=== PATIENT | female | born 1935 | race Caucasian/White ===

== ENCOUNTER 2016-08-15 05:10 | Inpatient (IN) | payer OTHER ==
[~2016-08-15] VITALS: Ht 157.5 cm; Wt 113.0 kg
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
--- NOTE | 2016-08-15 05:14 | NUR ---
BIBA BLS TO ER BED 3
--- NOTE | 2016-08-15 05:14 | NUR ---
Patient being evaluated by physician at bedside.
[2016-08-15] MEDS ORDERED: NACL 0.9% 1,000 ML IV ONE (05:19)
[2016-08-15 05:50] VITALS: BP 157/99
[2016-08-15 06:02] LABS: BASOPHILS # (AUTO) 0.1 K/uL (0.00-0.22); BASOPHILS % (AUTO) 1.2 % (0.0-2.0); EOSINOPHILS # (AUTO) 0.2 K/uL (0-0.4); EOSINOPHILS % (AUTO) 1.6 % (0.0-4.0); HEMOGLOBIN 12.2 g/dL (12.0-16.0); LYMPHOCYTES # (AUTO) 2.6 K/uL (2.5-16.5); LYMPHOCYTES % (AUTO) 23.3 % (20.5-51.1); MEAN CORPUSCULAR HEMOGLOBIN 30 pg (27-31); MEAN CORPUSCULAR HGB CONC 33 g/dL (33-37); MEAN CORPUSCULAR VOLUME 90 fL (80-94); MONOCYTES # (AUTO) 0.5 K/uL (0.8-1.0); MONOCYTES % (AUTO) 4.1 % (1.7-9.3); NEUTROPHILS # (AUTO) 7.7 K/uL (1.8-7.7); NEUTROPHILS % (AUTO) 69.8 % (42.2-75.2); PLATELET COUNT (AUTO) 237 K/uL (140-450); RED BLOOD CELL COUNT(AUTO) 4.13 MIL/uL (4.20-5.40); RED CELL DISTRIBUTION WIDTH 12.9 % (11.6-13.7); WHITE BLOOD COUNT (AUTO) 11.1 K/uL (4.8-10.8)
[2016-08-15 06:15] LABS: ANION GAP 13.1 (8-16); CALCIUM 8.7 mg/dL (8.5-10.1); CARBON DIOXIDE 27.1 mmol/L (21-32); CHLORIDE 94 mmol/L (98-107); CREATININE 1.6 mg/dL (0.6-1.3); GLUCOSE 263 mg/dL (74-106); POTASSIUM 4.2 mmol/L (3.5-5.1); SODIUM SERUM 130 mmol/L (136-145); UREA NITROGEN, BLOOD 35 mg/dL (7-18)
[2016-08-15 06:21] LABS: ALANINE AMINOTRANSFERASE 30 U/L (12-78); ALBUMIN 2.7 g/dL (3.4-5.0); ALKALINE PHOSPHATASE 105 U/L (46-116); ASPARTATE AMINOTRANSFERASE 29 U/L (15-37); LIPASE 88 U/L (73-393); TOTAL BILIRUBIN 0.3 mg/dL (0.0-1.0); TOTAL PROTEIN, SERUM 7.6 g/dL (6.4-8.2)
[2016-08-15 06:23] LABS: PROTHROMBIN TIME 9.9 secs (10.8-13.4)
[2016-08-15] MEDS ORDERED: NACL 0.9% 2,500 ML IV ONE (06:30)
[2016-08-15] MEDS ORDERED: LEVOFLOXACIN 750 MG/D5W PREMIX 150 ML IV ONE (06:30)
[2016-08-15 06:31] LABS: LACTIC ACID 3.5 mmol/L (0.4-2.0)
[2016-08-15 06:38] LABS: APPEARANCE,URINE CLEAR (CLEAR); BILIRUBIN,URINE NEGATIVE (NEGATIVE); BLOOD, URINE NEGATIVE (NEGATIVE); COLOR,URINE YELLOW (YELLOW); LEUKOCYTE ESTERASE ,URINE NEGATIVE (NEGATIVE); NITRITE, URINE NEGATIVE (NEGATIVE); PH,URINE 5.5 (5.0-9.0); PROTEIN,URINE 2+ (NEGATIVE); UGLUCOSE 2+ (NEGATIVE); UROBILINOGEN,URINE 0.2 EU/dL (0.2 - 1)
[2016-08-15 06:45] LABS: BACTERIA,URINE 1+ /HPF (None Seen); RBC,URINE 0-1 /HPF (0-5); WBC,URINE 0-3 /HPF (0-5)
[2016-08-15 06:46] LABS: MUCUS,URINE 1+ /LPF (None Seen); URINE AMORPHOUS URATE 1+ /HPF (None Seen)
--- NOTE | 2016-08-15 07:00 | NUR ---
PT TAKEN OFF THE UNIT TO CT VIA GURNEY BY FAMILY AND CONSUMER SCIENCES TEACHER
--- NOTE | 2016-08-15 07:01 | NUR ---
Pt report given to NINA HOLGUIN. Transfer of care at this time.
[2016-08-15] MEDS ORDERED: ONDANSETRON 4 MG/2 ML VIAL IVP ONE (07:35)
[2016-08-15] MEDS ORDERED: MIC5 PO (08:09)
[2016-08-15] MEDS ORDERED: AMLO10TA PO (08:09)
[2016-08-15] MEDS ORDERED: FURO-570 PO (08:09)
[2016-08-15] MEDS ORDERED: METF500T PO (08:09)
[2016-08-15] MEDS ORDERED: LISI-420 PO (08:09)
[2016-08-15] MEDS ORDERED: [UNRECOGNIZED DRUG - CODE] PO (08:09)
[2016-08-15] MEDS ORDERED: ASPI-1081 PO (08:09)
--- NOTE | 2016-08-15 09:18 | NUR ---
REPORT GIVEN TO CHELSIE JAIMES
[2016-08-15] MEDS ORDERED: HYDROmorphone 1 MG/ML AMP IVP ONE (09:30)
[2016-08-15] MEDS ORDERED: DEXTROSE 50% 50 ML SYR IVP PRN (09:30)
[2016-08-15] MEDS ORDERED: LORazepam 2 MG/ML VIAL IVP PRN (09:30)
[2016-08-15] MEDS ORDERED: VANCOMYCIN PER PHARMACY MC PRN (09:30)
[2016-08-15] MEDS ORDERED: HYDROcodone/APAP 5/325 MG 1 TAB TAB PO PRN (09:30)
[2016-08-15] MEDS ORDERED: ONDANSETRON 4 MG/2 ML VIAL IVP PRN (09:30)
[2016-08-15] MEDS ORDERED: cloNIDine 0.1 MG TAB PO PRN (09:40)
[2016-08-15] MEDS ORDERED: METOCLOPRAMIDE 10 MG/2 ML INJ VIAL IVP ONE (10:00)
[2016-08-15] MEDS ORDERED: diphenhydrAMINE 50 MG/ML VIAL IVP ONE (10:00)
--- NOTE | 2016-08-15 10:50 | NUR ---
Patient will be admitted to care of MONSALVE. Admited to TELE. Will go to room 110B. Belongings list completed. Report to CHELSIE JAIMES.
--- NOTE | 2016-08-15 11:00 | NUR ---
RECEIVED PT FROM ER PT AAO, BODY ASSESSMENT DONE NOTED DERMATITIS ON LEFT UNDER BREAST AND ABDOMINAL FOLDS, WITH INCONTINENT DERMATITIS ON LEFT BUTTOCKS AND PERINEAL, DIABETIC ULCER ON RIGHT HEEL, SEVERE DRYNESS ON BOTH PLANTAR AND LOWER EXTREMITIES, NOTED WITH EDEMA ALSO ON BOTH LOWER EXTREMITIES, ELEVATED BOTH LOWER EXTREMITIES TO PILLOWS.
[2016-08-15 12:00] VITALS: BP 105/68
--- NOTE | 2016-08-15 12:00 | NUR ---
WOUND CARE EVALUATION NOTES: REASON FOR EVALUATION: RIGHT HEEL WOUND COMPLETE SKIN ASSESSMENT DONE ON THIS 80 Y/O FEMALE PATIENT FROM HOME TO [facility], WITH INITIAL DIAGNOSIS OF SEPSIS. PAST MEDICAL HISTORY INCLUDE DIABETES AND HYPERTENSION. ALL ABOVE INFORMATION WAS OBTAINED FROM THE ADMISSION H&P. LABS ARE WBC 11.1, H/H 12.2/37, GLUCOSE 263, ALBUMIN 2.7 AND PT/INR 9.9/1.0. CURRENT MEDS INCLUDE ASPIRIN, VANCOMYCIN, INSULIN, ATIVAN AND NORCO. PATIENT IS AWAKE, ORIENTED TO PERSON AND PLACE BUT NOT TO DATE AND TIME. SKIN WARM TO TOUCH WNL, TOENAILS ARE LONG AND THICKENED, +3 EDEMA, BLE WITH DISCOLORATION, AND UNABLE TO PALPATE BILATERAL PEDAL PULSES. URINE AND BOWEL INCONTINENT. NEEDS ASSISTANCE IN TURNING. INITIAL PLAN OF CARE AND PRESSURE PREVENTIVE MEASURES DISCUSSED, ABLE TO VERBALIZE PARTIAL UNDERSTANDING. WILL REINFORCE TEACHING. INTEGUMENTARY: BREASTFOLDS - INTERTRIGINOUS DERMATITIS ABDOMINAL FOLDS - INTERTRIGINOUS DERMATITIS SACRALCOCCYX TO PERIAREA - INCONTINENCE ASSOCIATED DERMATITIS RIGHT HEEL - DIABETIC ULCER RECOMMENDATIONS: -CLEANSE SACRALCOCCYX TO PERIAREA WITH MILD SOAP AND WATER, PAT DRY, APPLY Z GUARD BIDWC AND PRN WITH SOILING. LEAVE OPEN TO AIR -CLEANSE RIGHT HEEL WITH WOUND CLEANSER, PAT DRY, APPLY THERAHONEY GEL, COVER WITH ADAPTIC, GAUZE AND WRAP WITH SHANA Q DAY AND PRN WITH SOILING/DISPLACEMENT. -CLEANSE BREASTFOLDS, ABDOMINAL FOLDS WITH MILD SOAP AND WATER, PAT DRY, APPLY INTERDRY CLOTH Q 7 DAYS AND PRN/DISPLACEMENT. CHECK PLACEMENT DAILY -CLEANSE BLE WITH MILD SOAP AND WATER, PAT DRY, APPLY VIT D OINT BIDWC AND LEAVE OPEN TO AIR. -TURN AND REPOSITION PATIENT Q2H -ASSESS AND MONITOR SKIN CONDITION DURING POSITION CHANGE, PLEASE PAY PARTICULAR ATTENTION TO SACRALCOCCYX, ELBOWS AND HEELS -OFFLOAD BILATERAL HEELS BY PLACING PILLOWS UNDER CALVES AT ALL TIMES, UNLESS OTHERWISE CONTRAINDICATED -KEEP SKIN CLEAN AND DRY AT ALL TIMES. -PODIATRY CONSULT IF OK WITH PM -ARTERIAL AND VENOUS U/S IF OK WITH PMD. RECOMMENDATIONS DISCUSSED WITH PRIMARY RN. WILL FOLLOW UP PATIENT Q 7 DAYS AND PRN. PLEASE CONTACT C FOR ANY CONCERNS, QUESTIONS AND CHANGES IN SKIN CONDITION.
--- NOTE | 2016-08-15 12:09 | NUR ---
PT EATING LUNCH AT THIS TIME, PT AAO.
[2016-08-15] MEDS ORDERED: INTERDRY CLOTH TP PRN (12:55)
[2016-08-15] MEDS ORDERED: THERAHONEY GEL 42.5 GM TP PRN (12:55)
[2016-08-15] MEDS ORDERED: INTERDRY CLOTH TP SCH (12:55)
[2016-08-15] MEDS ORDERED: Z-GUARD PASTE TP PRN (12:55)
[2016-08-15] MEDS ORDERED: CLINDAMYCIN 300 MG in DEXTROSE 5% 50 ML IV SCH (13:00)
[2016-08-15] MEDS: VITAMIN A/VITAMIN D OINT 113 GM TUBE TP SCH (13:00)
[2016-08-15] MEDS: NACL 0.9% 1,000 ML IV SCH ×2 (13:07→23:11)
[2016-08-15] MEDS: VANCOMYCIN 750 MG in DEXTROSE 5% 250 ML IV SCH (13:08)
--- NOTE | 2016-08-15 13:55 | NUR ---
ECHO ONGOING AT THIS TIME
[2016-08-15] MEDS: METOCLOPRAMIDE 10 MG/2 ML INJ VIAL IVP SCH ×2 (14:29→20:17)
[2016-08-15] MEDS: Z-GUARD PASTE TP SCH (14:30)
[2016-08-15] MEDS: THERAHONEY GEL 42.5 GM TP SCH (14:42)
[2016-08-15] MEDS: BLOOD GLUCOSE MONITORING 1 DEV DEV FS SCH ×3 (14:48→20:21)
[2016-08-15] MEDS: INSULIN LISPRO SLIDING SCALE 100 UNITS/ML VIAL SUBQ PRN ×2 (14:48→17:24)
--- NOTE | 2016-08-15 15:44 | NUR ---
PT FOR HIDA SCAN IN AM NEED TO BE NPO AFTER MIDNIGHT, WILL ENDORSE TO INCOMING SHIFT, TALKED TO MELVA IN NUCLEAR MED.
--- NOTE | 2016-08-15 15:50 | NUR ---
PT FAMILY AT BEDSIDE, UPDATE OF PT CONDITION, PT CALM, IVF ONGOING WELL TOLERATED.
[2016-08-15 16:23] VITALS: BP 121/85
[2016-08-15] MEDS: glyBURIDE 5 MG TAB PO SCH (17:21)
[2016-08-15] MEDS ORDERED: LEVOFLOXACIN 500 MG/D5W PREMIX 100 ML IV SCH (17:30)
--- NOTE | 2016-08-15 18:10 | NUR ---
PT FINISHED EATING ASSISTED BY SON, PT AAO, NO C/O PAIN, WITH GOOD APPETITE.
--- NOTE | 2016-08-15 19:14 | NUR ---
REPORT GIVEN TO JANICE FOR CONTINUATION OF CARE Addendum: 08/15/16 at 1936 by Blanca Mullen RN ENDORSED TO FOLLOW UP RECOMMENDATION OF WOUND CARE NURSE AND VTE PROPHYLAXIS, UNABLE TO PUT SEQUENTIAL DUE TO EDEMA LOWER EXTREMITIES
--- NOTE | 2016-08-15 19:22 | NUR ---
RECEIVED REPORT FROM PIEDAD HOLGUIN FOR CONTINUITY OF CARE. PATIENT IS A&OX4, [place] SPEAKING, DISCUSSED PLAN OF CARE WITH PATIENT AND FAMILY MEMBERS AT BEDSIDE, VERBALIZED UNDERSTANDING. SHIFT ASSESSMENT DONE, VS TAKEN, ELEVATED BP NOTED WILL ADMINISTER MEDS PER MD ORDER. NO S/S OF RESPIRATORY DISTRESS NOTED ON 2L NASAL CANNULA O2. PATIENT DENIES PAIN. PATIENT HAS BLE DISCOLORATION AND EDEMA NOTED, DRESSING TO RT HEEL DRY AND INTACT AND REDNESS TO RIGHT BREAST FOLD AND MALCOLM AREA. IV TO RT HAND 22 GAUGE PATENT AND INFUSING FLUIDS WELL. CALL LIGHT PLACED WITHIN REACH. WILL CONTINUE TO MONITOR.
--- NOTE | 2016-08-15 19:56 | NUR ---
ASSISTED PT TO USE BEDPAN, WAS NOT ABLE TO GO. PER PT SHE FEELS CONSTIPATED, PROVIDED PRUNE JUICE.
[2016-08-15 20:00] VITALS: BP 141/77
[2016-08-15] MEDS: metroNIDAZOLE 500 MG/NS PREMIX 100 ML IV SCH (20:17)
--- NOTE | 2016-08-15 20:17 | NUR ---
DUE MEDICATIONS ADMINISTERED, TOLERATED WELL. ANTIBIOTICS GIVEN, NO REACTION NOTED. BLOOD SUGAR, 157 INSULIN HELD DUE TO PT STATES DECREASED APPETITE AND NPO AT MIDNIGHT. WILL CONTINUE TO MONITOR.
[2016-08-15] MEDS ORDERED: amLODIPine 5 MG TAB PO SCH (21:00)
--- NOTE | 2016-08-15 21:43 | NUR ---
DR. SIERRA IN TO SEE PATIENT. ATTEMPTED TO CONTACT SON, NO ANSWER, LEFT A MESSAGE.
--- NOTE | 2016-08-15 21:52 | NUR ---
SPOKE WITH DR. FONSECA REGARDING WOUND CARE NURSE RECOMMENDATIONS, WILL FOLLOW OUT ORDERS RECEIVED.
--- NOTE | 2016-08-15 22:32 | NUR ---
IV LEAKING. REMOVED WITH CANNULA INTACT. NEW IV TO RT HAND 24 GAUGE CONNECTED TO FLUIDS. PT FAMILY MEMBER AT BEDSIDE CONCERNED WITH STATUS. EDUCATED SON ON PROCEDURES PLANNED FOR TOMORROW, VERBALIZED UNDERSTANDING AND WENT HOME. CALL LIGHT WITHIN REACH.
--- NOTE | 2016-08-15 23:55 | NUR ---
VS TAKEN, STABLE. CHANGED LINENS AND PROVIDED NEW GOWN. PATIENT IS AWAKE WATCHING TV NO S/S OF DISTRESS NOTED. CALL LIGHT WITHIN REACH.
[2016-08-16] VITALS (7 sets, daily range): BP systolic 113–146; BP diastolic 61–76
[2016-08-16] MEDS: VITAMIN A/VITAMIN D OINT 113 GM TUBE TP SCH ×2 (01:04→12:17)
[2016-08-16] MEDS: Z-GUARD PASTE TP SCH ×2 (01:04→12:18)
--- NOTE | 2016-08-16 02:05 | NUR ---
PT REQUESTED TO HAVE BLOOD SUGAR TAKEN, 167. PT ALSO REQUESTED TO HAVE VS TAKEN, STABLE. CALL LIGHT PLACED WITHIN REACH.
--- NOTE | 2016-08-16 03:59 | NUR ---
VS TAKEN, STABLE. PATIENT REFUSED TO WEAR NASAL CANNULA, O2 SAT 95%. WILL CONTINUE TO MONITOR.
[2016-08-16] MEDS: metroNIDAZOLE 500 MG/NS PREMIX 100 ML IV SCH ×2 (04:08→12:15)
[2016-08-16] MEDS: METOCLOPRAMIDE 10 MG/2 ML INJ VIAL IVP SCH ×2 (04:08→12:18)
[2016-08-16] MEDS: BLOOD GLUCOSE MONITORING 1 DEV DEV FS SCH ×3 (05:35→17:08)
--- NOTE | 2016-08-16 05:36 | NUR ---
DUE ANTIBIOTICS ADMINISTERED, NO REACTION NOTED. PATIENT PLACED BACK ON OXYGEN AT 2L.
[2016-08-16] MEDS ORDERED: LEVOFLOXACIN 500 MG/D5W PREMIX 100 ML IV SCH (06:00)
[2016-08-16 06:16] LABS: BASOPHILS # (AUTO) 0.1 K/uL (0.00-0.22); BASOPHILS % (AUTO) 0.9 % (0.0-2.0); EOSINOPHILS # (AUTO) 0.3 K/uL (0-0.4); EOSINOPHILS % (AUTO) 3.1 % (0.0-4.0); HEMATOCRIT 31.2 % (36-48); HEMOGLOBIN 10.4 g/dL (12.0-16.0); LYMPHOCYTES % (AUTO) 22.1 % (20.5-51.1); MEAN CORPUSCULAR HEMOGLOBIN 30 pg (27-31); MEAN CORPUSCULAR HGB CONC 33 g/dL (33-37); MEAN CORPUSCULAR VOLUME 88 fL (80-94); MONOCYTES # (AUTO) 0.7 K/uL (0.8-1.0); MONOCYTES % (AUTO) 7.7 % (1.7-9.3); NEUTROPHILS # (AUTO) 6.2 K/uL (1.8-7.7); NEUTROPHILS % (AUTO) 66.2 % (42.2-75.2); PLATELET COUNT (AUTO) 210 K/uL (140-450); RED BLOOD CELL COUNT(AUTO) 3.53 MIL/uL (4.20-5.40); RED CELL DISTRIBUTION WIDTH 12.7 % (11.6-13.7); WHITE BLOOD COUNT (AUTO) 9.3 K/uL (4.8-10.8)
[2016-08-16 06:44] LABS: ALANINE AMINOTRANSFERASE 26 U/L (12-78); ALBUMIN 2.2 g/dL (3.4-5.0); ALKALINE PHOSPHATASE 73 U/L (46-116); ASPARTATE AMINOTRANSFERASE 27 U/L (15-37); CALCIUM 7.9 mg/dL (8.5-10.1); CHLORIDE 101 mmol/L (98-107); CREATININE 1.4 mg/dL (0.6-1.3); GLUCOSE 95 mg/dL (74-106); MAGNESIUM 1.7 mg/dL (1.8-2.4); SODIUM SERUM 134 mmol/L (136-145); TOTAL BILIRUBIN 0.4 mg/dL (0.0-1.0); TOTAL PROTEIN, SERUM 6.1 g/dL (6.4-8.2); UREA NITROGEN, BLOOD 31 mg/dL (7-18)
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
--- NOTE | 2016-08-16 07:15 | NUR ---
ENDORSED PATIENT TO DAY RN FOR CONTINUITY OF CARE. PATIENT IS IN STABLE CONDITION.
[2016-08-16] MEDS: glyBURIDE 5 MG TAB PO SCH ×2 (07:30→17:18)
--- NOTE | 2016-08-16 07:32 | NUR ---
SPOKE TO DR. MONSALVE REGARDING ORDER FOR VTE PROPHYLAXIS, WILL ENDORSE.
[2016-08-16] MEDS ORDERED: MAG SULF 2000 MG/WATER PREMIX 50 ML IV SCH (07:40)
--- NOTE | 2016-08-16 07:56 | NUR ---
PATIENT HAS BEEN SCREENED AND CATEGORIZED HIGH NUTRITION RISK. PATIENT WILL BE SEEN WITHIN 1-2 DAYS OF ADMISSION. 08/16/16-08/17/[address]
[2016-08-16] MEDS: MAG SULF 2000 MG/WATER PREMIX 50 ML IV SCH ×2 (08:13→11:43)
[2016-08-16] MEDS ORDERED: ECOTRIN 81 MG TABEC PO SCH (09:00)
[2016-08-16] MEDS ORDERED: CLOPIDOGREL 75 MG TAB PO SCH (09:00)
--- NOTE | 2016-08-16 09:53 | NUR ---
RECEIVED CALL FROM [place]O, PT'S SON. INFORMED [place]O THAT PT IS GETTING HIDA SCAN DONE AT THIS TIME. [place]O VERBALIZED UNDERSTANDING AND SAID HE WOUND BE IN THE HOSPITAL SOON.
--- NOTE | 2016-08-16 10:40 | NUR ---
PT BACK FROM HIDA SCAN. NO S/S DISTRESS AT THIS TIME.
--- NOTE | 2016-08-16 10:43 | NUR ---
SPOKE WITH INGRID FROM [facility]. SHE ASKED IF PATIENT IS STABLE FOR TRANSFER TO CONTRACTED HOSPITAL. I INFORMED DR. MONSALVE. FAXED INITIAL REVIEW AND ORDER FOR TRANSFER TO CONTRACTED FACILITY TO [phone] PHONE INGRID [phone].
--- NOTE | 2016-08-16 11:30 | NUR ---
PT REFUSED LAST IMAGING FOR HIDA SCAN.
[2016-08-16] MEDS: NACL 0.9% 1,000 ML IV SCH (12:09)
[2016-08-16] MEDS: VANCOMYCIN 750 MG in DEXTROSE 5% 250 ML IV SCH (12:15)
--- NOTE | 2016-08-16 12:15 | NUR ---
ASSISTED PT WITH LUNCH TRAY.
[2016-08-16] MEDS: THERAHONEY GEL 42.5 GM TP SCH (12:17)
--- NOTE | 2016-08-16 14:07 | NUR ---
08/16/16 RD INITIAL ASSESSMENT COMPLETED PLEASE REFER TO NUTRITION ASSESSMENT UNDER CARE ACTIVITY FOR ESTIMATED NUTRITIONAL NEEDS. RD RECOMMENDATIONS: 1. CONTINUE CCHO 60GM DIET TOLERATED 2. INCREASE PROTIEN NEEDS TO AID WITH SEPSIS AND WOUND HEALING --NOTE PT HX OF ACUTE RENAL FAILURE, RD WILL MONITOR RENAL LAB VALUES 3. RD PROVIDED PT WITH DIABETES EDUCATION. 4. RD WILL F/U 3-5 DAYS; MODERATE RISK. KATHE ENAMORADO RD
--- NOTE | 2016-08-16 14:40 | NUR ---
RECEIVED A CALL FROM PEARL, STEAM AND GAS TURBINES ASSEMBLER , FROM [facility]. THE PATIENT HAS BEEN ACCEPTED AT [facility]. [address] [facility] [address] PHONE FOR HOSPITAL, . THE PATIENT WILL GO TO ROOM 113A UNDER DR. SEGUNDO. PHONE REPORT TO [phone]. AUTH FOR TRANSPORT IS [id number]. SHIRIN HOLGUINELECTRICAL POWER ENGINEER NURSE AWARE.
--- NOTE | 2016-08-16 14:52 | NUR ---
INFORMED PATIENT AND THE SON AT BEDSIDE REGARDING TRANSFER TO CONTRACTED FACILITY, SON REFUSED, INFORMED OVERHAULER HELPER YSABEL. WILL CONTINUE TO MONITOR.
--- NOTE | 2016-08-16 15:18 | NUR ---
DR MONSALVE TALKING TO PATIENT'S SON, HIMA. PER HIMA, HE WILL AGREE FOR PATIENT TO GO TO [facility]. YSABEL CASE MGMT, AWARE.
--- NOTE | 2016-08-16 15:26 | NUR ---
RECEIVED CALL FROM PEARL FROM [facility]. THEY HAVE A BED FOR PATIENT AT [facility], [address] [facility] [address]. PHONE [phone] SHE WILL GO TO ROOM [address] SEGUNDO. PHONE FOR REPORT [phone]. AUTH FOR TRANSPORT IS [id number]. I SPOKE WITH THE SON ORLANDO CUTLER AND HE ASKED IF THERE WERE ANY FACILITIES CLOSER. I CALLED PEARL AT [facility] AND HE SAID THEY ARE NOT CONTRACTED WITH FACILITIES AROUND HER, JUST [place], [facility] AND [place]. I INFORMED THE SON AND HAD THE NURSE CALL DR. MONSALVE FOR THE SON TO SPEAK WITH. AFTER SPEAKING WITH DR. MONSALVE SON AGREED TO [facility]. I CALLED [facility] AND SET UP TRANSPORT, [facility]. THE PICKUP WILL BE IN 1 HOUR. SHIRIN HOLGUIN AWARE. INFORMED [facility] ABOUT THE WEIGHT OF THIS PATIENT.
--- NOTE | 2016-08-16 15:46 | NUR ---
SS NOTE: [facility] APS REPORT MADE, SENT APS WRITTEN REPORT, RECEIVED FAX CONFIRMATION
--- NOTE | 2016-08-16 16:30 | NUR ---
PER YSABEL, CASE MGMT, PATIENT DOES NOT WANT TO BE TRANSFERRED TO [facility]. PER SON, OR[place]O, HE THINKS IT IS BETTER TO WAIT FOR PATIENT TO HAVE DINNER AND CALM DOWN FIRST BEFORE ASKING HER AGAIN.
--- NOTE | 2016-08-16 16:31 | NUR ---
RECEIVED A CALL FROM SHIRIN HOLGUINEXTENSION EDGER NURSE THAT THE PATIENT DOESN'T WANT TO BE TRANSFERRED. I CALLED [facility] AND SPOKE WITH LORETA QUINTERO, . I INFORMED HER THAT AT PRESENT THE PATIENT DOESN'T WANT TO GO TO [facility]. INGRID SAID IF THE PATIENT IS NOT DISCHARGED AND SHE REFUSES TO BE TRANSFERED, THAT THEY WILL BE ISSUED A DENIAL LETTER AND THE PATIENT AND FAMILY WILL BE RESPONSIBLE FOR THE HOSPITAL BILL. I WENT AND SPOKE TO THE SON AND THE PATIENT AND THEY AGREED TO THINK ABOUT THE TRANSFER AND WANTED A LITTLE TIME. I SPOKE WITH SHIRIN HOLGUIN AND SHE PUT THE [facility] PICKUP ON WILL CALL.
[2016-08-16] MEDS ORDERED: LEVOFLOXACIN 250 MG/D5 PREMIX 50 ML IV SCH (17:00)
--- NOTE | 2016-08-16 17:00 | NUR ---
PER, PT, SHE WILL AGREE TO GO TO [facility]. DISCHARGE EDUCATION GIVEN, DISCHARGE FORMS SIGNED. WILL CONTINUE TO MONITOR.
[2016-08-16] MEDS: INSULIN LISPRO SLIDING SCALE 100 UNITS/ML VIAL SUBQ PRN (17:21)
--- NOTE | 2016-08-16 19:20 | NUR ---
RECEIVED PT REPORT FROM MARY HOLGUIN AT PT BEDSIDE, FOR CONTINUITY OF CARE. NO ACUTE DISTRESS NOTED.
--- NOTE | 2016-08-16 19:20 | NUR ---
REPORT GIVEN TO ALEN HOLGUIN.
--- NOTE | 2016-08-16 19:30 | NUR ---
SHIFT ASSESSMENT DONE AT THIS TIME. PT IS A/OX3, COMORAN SPEAKING. NO ACUTE DISTRESS NOTED. DISCUSSED PLAN OF CARE WITH PT, VERBALIZED UNDERSTANDING. REINFORCED DISCHARGE TEACHINGS TO PT, VERBALIZED UNDERSTANDING. WILL GO TO TWO DOT, ALL PAPER WORK VERIFIED, AND ALL QUESTION ANSWERED. VITAL SIGNS ARE STABLE. PT ON ROOM AIR WITH OXYGEN SATURATION AT 94%, DENIES FEVER CHILLS, NAUSEA, VOMITING. DENIES SOB OR CHEST PAIN. LUNGS ARE CLEAR, BOWEL SOUNDS ARE ACTIVE. IV ACCESS TO RT HAND #24G, PATENT AND INTACT. NOTED BLE WARM AND DISCOLORED, SWELLING NOTED +2 EDEMA, ELEVATED TO PILLOWS. PT RT FOOT DRESSING, DRY AND INTACT. PT ON VTE PROPHYLAXIS. WILL CONTINUE TO MONITOR PT. SAFETY PRECAUTIONS IMPLEMENTED. CALL LIGHT WITHIN REACH. WILL CONTINUE TO MONITOR.
--- NOTE | 2016-08-16 20:10 | NUR ---
PT REFUSING BLOOD GLUCOSE CHECK, PT NOTED STABLE, NO S/S OF ACUTE DISTRESS. DENIES PAIN AND OR DISCOMFORT. ON ROOM AIR.
--- NOTE | 2016-08-16 20:17 | NUR ---
REPORT GIVEN TO [facility] TRANSPORTER DOM REGARDING PT.
--- NOTE | 2016-08-16 20:30 | NUR ---
ID BANDS REMOVED, AND IV CANNULA REMOVED AND INTACT. NO S/S OF DISTRESS. WILL CONTINUE TO MONITOR.
--- NOTE | 2016-08-16 20:40 | NUR ---
PT DISCHARGED AT THIS TIME, ACCOMPANIED BY [facility] AND FAMILY. NO S/S OF DISTRESS.
== END 2016-08-16 20:40 | disposition short-term general hospital (02) | DRG 698 ==
LOC: MED 05:10 → MTU 09:15
PROVIDERS: ADMIT Hospitalist; ATTEND Hospitalist
PROC: 0UPDXHZ Removal of Contraceptive Device from Uterus and Cervix, External Approach (ICD-10-PCS; principal; 2016-08-15)
DX: T83.69XA Infection and inflammatory reaction due to other prosthetic device, implant and graft in genital tract, initial encounter (principal); A41.9 Sepsis, unspecified organism; L97.419 Non-pressure chronic ulcer of right heel and midfoot with unspecified severity; E87.1 Hypo-osmolality and hyponatremia; Z68.42 Body mass index [BMI] 45.0-49.9, adult; N17.9 Acute kidney failure, unspecified; E11.621 Type 2 diabetes mellitus with foot ulcer; E11.65 Type 2 diabetes mellitus with hyperglycemia; E11.22 Type 2 diabetes mellitus with diabetic chronic kidney disease; K80.20 Calculus of gallbladder without cholecystitis without obstruction; N71.9 Inflammatory disease of uterus, unspecified; E66.9 Obesity, unspecified; I12.9 Hypertensive chronic kidney disease with stage 1 through stage 4 chronic kidney disease, or unspecified chronic kidney disease; N18.3 Chronic kidney disease, stage 3 (moderate); Z88.0 Allergy status to penicillin; Z79.84 Long term (current) use of oral hypoglycemic drugs; Z79.82 Long term (current) use of aspirin; Z79.899 Other long term (current) drug therapy; Z87.81 Personal history of (healed) traumatic fracture
CPT/HCPCS: 36415; 58301; 71010; 78445; 80053; 81001; 82948; 83605; 83690; 83735; 83880; 84484; 85025; 85610; 87040; 87070; 87075; 87081; 87086; 87186; 93005; 93971; 96361; 96365; 96375; 97110; 97140; 97530; 99285; A9510; C1758; J1170; J1200; J1644; J1815; J1956; J2405; J2765; J3370; J3475; J3490; J7030; J7060; Q0092

== ENCOUNTER 2017-06-14 16:19 | Inpatient (IN) | payer OTHER ==
[~2017-06-14] VITALS: Ht 160 cm; Wt 90.7 kg
[2017-06-14] MEDS: SODIUM BICARBONATE 8.4% 75 MEQ in NACL 0.45% 1,000 ML IV SCH ×2 (00:40→23:00)
[~2017-06-14 16:19] MED LIST: AMLO10TA PO; ASPI-1129 PO; FURO-570 PO; LISI-420 PO; METF500T PO; MIC5 PO; [UNRECOGNIZED DRUG - CODE] PO
[2017-06-14 16:25] VITALS: BP 123/60
[2017-06-14] MEDS ORDERED: NACL 0.9% 1,000 ML IV SCH (16:51)
[2017-06-14 17:24] LABS: HEMOGLOBIN 9.3 g/dL (12.0-16.0); MEAN CORPUSCULAR HEMOGLOBIN 30 pg (27-31); RED BLOOD CELL COUNT(AUTO) 3.15 MIL/uL (4.20-5.40)
[2017-06-14 17:28] LABS: HEMATOCRIT 28.1 % (36-48); MEAN CORPUSCULAR HGB CONC 33 g/dL (33-37); MEAN CORPUSCULAR VOLUME 89 fL (80-94); PLATELET COUNT (AUTO) 555 K/uL (140-450); RED CELL DISTRIBUTION WIDTH 14.1 % (11.6-13.7)
[2017-06-14 17:37] LABS: ALBUMIN 1.2 g/dL (3.4-5.0); ANION GAP 27.1 (8-16); ASPARTATE AMINOTRANSFERASE 37 U/L (15-37); CHLORIDE 98 mmol/L (98-107); CREATININE 2.2 mg/dL (0.6-1.3); GLUCOSE 375 mg/dL (74-106); POTASSIUM 5.1 mmol/L (3.5-5.1); SODIUM SERUM 133 mmol/L (136-145); TOTAL BILIRUBIN 0.4 mg/dL (0.0-1.0)
[2017-06-14 17:48] LABS: UREA NITROGEN, BLOOD 78 mg/dL (7-18)
[2017-06-14 17:50] LABS: WHITE BLOOD COUNT (AUTO) 37.2 K/uL (4.8-10.8)
[2017-06-14 17:52] LABS: LYMPHOCYTES % (MANUAL) 3 % (20-46); MONOCYTES % (MANUAL) 3 % (5-12)
[2017-06-14 18:04] LABS: APPEARANCE,URINE CLEAR (CLEAR); BILIRUBIN,URINE NEGATIVE (NEGATIVE); BLOOD, URINE TRACE-I (NEGATIVE); COLOR,URINE YELLOW (YELLOW); LEUKOCYTE ESTERASE ,URINE NEGATIVE (NEGATIVE); NITRITE, URINE NEGATIVE (NEGATIVE); UGLUCOSE NEGATIVE (NEGATIVE)
[2017-06-14 18:06] LABS: PROTHROMBIN TIME 11.8 secs (10.8-13.4)
[2017-06-14 18:18] LABS: RBC,URINE 0-5 (RARE) /HPF (0-5); WBC,URINE 0-5 (RARE) /HPF (0-5)
[2017-06-14] MEDS ORDERED: CLINDAMYCIN 600 MG in DEXTROSE 5% 50 ML IV ONE (18:25)
[2017-06-14] MEDS ORDERED: NACL 0.9% 1,000 ML IV ONE ×2 (18:25)
[2017-06-14] MEDS ORDERED: LEVOFLOXACIN 500 MG/D5W PREMIX 100 ML IV ONE (18:25)
[2017-06-14] MEDS ORDERED: INSULIN HUMAN REGULAR 100 UNITS/ML 10 ML VIAL IVP ONE (18:25)
[2017-06-14] MEDS ORDERED: CLINDAMYCIN 600 MG/4 ML VIAL ONE (18:37)
[2017-06-14] MEDS ORDERED: HYDROcodone/APAP 5/325 MG 1 TAB TAB PO PRN (19:25)
[2017-06-14] MEDS ORDERED: VANCOMYCIN PER PHARMACY MC PRN (19:25)
[2017-06-14] MEDS ORDERED: ACETAMINOPHEN 325 MG TAB PO PRN (19:25)
[2017-06-14] MEDS ORDERED: NOREPINEPHRINE 4 MG in DEXTROSE 5% 250 ML IV ONE (19:35)
[2017-06-14] MEDS ORDERED: SODIUM BICARBONATE 8.4% 100 MEQ in NACL 0.9% 1,000 ML IV SCH (19:35)
[2017-06-14] MEDS ORDERED: DEXTROSE 50% 50 ML SYR IVP PRN (19:40)
[2017-06-14] MEDS: BLOOD GLUCOSE MONITORING 1 DEV DEV FS SCH ×2 (21:00→22:00)
[2017-06-14] MEDS ORDERED: CEFEPIME 1,000 MG in DEXTROSE 5% 50 ML IV SCH (21:00)
[2017-06-14] MEDS: NACL 0.9% 1,000 ML IV SCH (21:23)
[2017-06-14 22:00] VITALS: BP 94/45
[2017-06-14] MEDS ORDERED: VANCOMYCIN 1GM/DEXT 5% PREMIX 200 ML IV SCH (22:00)
[2017-06-14] MEDS ORDERED: VANCOMYCIN 1,000 MG VIAL ONE (22:55)
[2017-06-14] MEDS ORDERED: CEFEPIME 1,000 MG VIAL ONE (22:56)
[2017-06-14] MEDS ORDERED: PNEUMOCOCCAL VACCINE 23 MCG/0.5 ML VIAL IMVAC SCH (23:05)
[2017-06-14] MEDS: INSULIN LISPRO SLIDING SCALE 100 UNITS/ML VIAL SUBQ PRN (23:16)
[2017-06-14] MEDS: CEFEPIME 1,000 MG in DEXTROSE 5% 50 ML IV SCH (23:17)
[2017-06-15] VITALS (57 sets, daily range): BP systolic 72–137; BP diastolic 26–94
[2017-06-15] MEDS ORDERED: VANCOMYCIN 1GM/DEXT 5% PREMIX 200 ML IV SCH
[2017-06-15] MEDS ORDERED: SODIUM BICARBONATE 8.4% 50 MEQ/50 ML VIAL ONE (00:44)
[2017-06-15] MEDS ORDERED: metroNIDAZOLE 500 MG/NS PREMIX 100 ML IV ONE (01:10)
[2017-06-15] MEDS ORDERED: NOREPINEPHRINE 4 MG/4 ML VIAL IV ONE (01:11)
[2017-06-15] MEDS: HYDROcodone/APAP 5/325 MG 1 TAB TAB PO PRN ×2 (03:52→11:40)
[2017-06-15] MEDS: metroNIDAZOLE 500 MG/NS PREMIX 100 ML IV SCH ×3 (04:32→20:51)
[2017-06-15] MEDS: NACL 0.9% 1,000 ML IV SCH (04:54)
[2017-06-15 05:03] LABS: HEMATOCRIT 23.1 % (36-48); HEMOGLOBIN 7.9 g/dL (12.0-16.0); MEAN CORPUSCULAR HEMOGLOBIN 30 pg (27-31); MEAN CORPUSCULAR HGB CONC 34 g/dL (33-37); MEAN CORPUSCULAR VOLUME 87 fL (80-94); PLATELET COUNT (AUTO) 435 K/uL (140-450); RED BLOOD CELL COUNT(AUTO) 2.65 MIL/uL (4.20-5.40); RED CELL DISTRIBUTION WIDTH 13.7 % (11.6-13.7)
[2017-06-15 05:24] LABS: ALBUMIN 1.1 g/dL (3.4-5.0); ANION GAP 17.6 (8-16); ASPARTATE AMINOTRANSFERASE 43 U/L (15-37); CARBON DIOXIDE 19.7 mmol/L (21-32); CHLORIDE 103 mmol/L (98-107); CREATININE 1.8 mg/dL (0.6-1.3); GLUCOSE 222 mg/dL (74-106); MAGNESIUM 1.8 mg/dL (1.8-2.4); POTASSIUM 4.3 mmol/L (3.5-5.1); SODIUM SERUM 136 mmol/L (136-145); TOTAL BILIRUBIN 0.3 mg/dL (0.0-1.0)
[2017-06-15 05:40] LABS: UREA NITROGEN, BLOOD 78 mg/dL (7-18)
[2017-06-15 07:03] LABS: LYMPHOCYTES % (MANUAL) 5 % (20-46); MONOCYTES % (MANUAL) 2 % (5-12)
[2017-06-15] MEDS: BLOOD GLUCOSE MONITORING 1 DEV DEV FS SCH ×4 (07:30→20:51)
[2017-06-15] MEDS: INSULIN LISPRO SLIDING SCALE 100 UNITS/ML VIAL SUBQ PRN ×3 (08:27→17:06)
[2017-06-15] MEDS: SODIUM BICARBONATE 8.4% 75 MEQ in NACL 0.45% 1,000 ML IV SCH ×3 (08:35→19:58)
[2017-06-15] MEDS ORDERED: INFLUENZA VIRUS VACCINE QUAD 0.5 ML SYR IMVAC SCH (09:00)
[2017-06-15] MEDS ORDERED: CEFEPIME 1,000 MG in DEXTROSE 5% 50 ML IV SCH (09:00)
[2017-06-15] MEDS: ENOXAPARIN 30 MG/0.3 ML SYR SUBQ SCH (09:58)
[2017-06-15] MEDS ORDERED: Z-GUARD PASTE TP PRN (15:15)
[2017-06-15] MEDS ORDERED: SKINTEGRITY HYDROGEL TP PRN (15:15)
[2017-06-15] MEDS ORDERED: NYSTATIN POW 100 MU/GM 15 GM BTL TP PRN (15:15)
[2017-06-15] MEDS ORDERED: THERAHONEY GEL 42.5 GM TP PRN (15:15)
[2017-06-15] MEDS ORDERED: FUROSEMIDE 40 MG/4 ML VIAL IVP SCH (19:30)
[2017-06-15] MEDS: ONDANSETRON 4 MG/2 ML VIAL IVP PRN (20:51)
[2017-06-15 21:16] LABS: ANION GAP 12.7 (8-16); CHLORIDE 104 mmol/L (98-107); CREATININE 1.5 mg/dL (0.6-1.3); GLUCOSE 156 mg/dL (74-106); POTASSIUM 3.7 mmol/L (3.5-5.1); SODIUM SERUM 139 mmol/L (136-145)
[2017-06-15 21:47] LABS: UREA NITROGEN, BLOOD 70 mg/dL (7-18)
[2017-06-15] MEDS: CEFEPIME 1,000 MG in DEXTROSE 5% 50 ML IV SCH (22:35)
[2017-06-16] VITALS (17 sets, daily range): BP systolic 93–140; BP diastolic 30–67
[2017-06-16] MEDS: HYDRAGUARD CREAM TP SCH ×2 (01:00→12:48)
[2017-06-16] MEDS: NYSTATIN POW 100 MU/GM 15 GM BTL TP SCH ×2 (01:00→12:53)
[2017-06-16] MEDS: Z-GUARD PASTE TP SCH ×2 (01:00→13:00)
[2017-06-16] MEDS: metroNIDAZOLE 500 MG/NS PREMIX 100 ML IV SCH ×2 (04:36→12:50)
[2017-06-16] MEDS: SODIUM BICARBONATE 8.4% 75 MEQ in NACL 0.45% 1,000 ML IV SCH (04:36)
[2017-06-16] MEDS: BLOOD GLUCOSE MONITORING 1 DEV DEV FS SCH ×3 (06:43→18:00)
[2017-06-16] MEDS: INSULIN LISPRO SLIDING SCALE 100 UNITS/ML VIAL SUBQ PRN ×3 (06:44→18:15)
[2017-06-16] MEDS ORDERED: VANCOMYCIN 750 MG in DEXTROSE 5% 250 ML IV SCH (08:00)
[2017-06-16] MEDS: ENOXAPARIN 30 MG/0.3 ML SYR SUBQ SCH (09:33)
[2017-06-16 10:27] LABS: ANION GAP 11.7 (8-16); CARBON DIOXIDE 25.8 mmol/L (21-32); CHLORIDE 101 mmol/L (98-107); GLUCOSE 193 mg/dL (74-106); POTASSIUM 3.5 mmol/L (3.5-5.1); SODIUM SERUM 135 mmol/L (136-145)
[2017-06-16 10:29] LABS: CREATININE 1.4 mg/dL (0.6-1.3); UREA NITROGEN, BLOOD 68 mg/dL (7-18)
[2017-06-16] MEDS ORDERED: SKINTEGRITY HYDROGEL TP SCH (13:00)
[2017-06-16] MEDS ORDERED: THERAHONEY GEL 42.5 GM TP SCH (13:00)
[2017-06-16] MEDS ORDERED: PROBIOTIC SCREEN 1 EA MISC MC PRN (13:40)
[2017-06-16 14:03] LABS: MEAN CORPUSCULAR HEMOGLOBIN 29 pg (27-31); MEAN CORPUSCULAR HGB CONC 34 g/dL (33-37); MEAN CORPUSCULAR VOLUME 87 fL (80-94); PLATELET COUNT (AUTO) 308 K/uL (140-450); RED BLOOD CELL COUNT(AUTO) 2.23 MIL/uL (4.20-5.40); WHITE BLOOD COUNT (AUTO) 21.8 K/uL (4.8-10.8)
[2017-06-16 15:01] LABS: HEMATOCRIT 19.3 % (36-48); HEMOGLOBIN 6.5 g/dL (12.0-16.0)
[2017-06-16 15:23] LABS: LYMPHOCYTES % (MANUAL) 5 % (20-46); MONOCYTES % (MANUAL) 1 % (5-12)
[2017-06-16] MEDS: ONDANSETRON 4 MG/2 ML VIAL IVP PRN (15:54)
[2017-06-17] MEDS ORDERED: LACTOBACILLUS RHAMNOSUS GG 1 EACH CAP PO SCH (09:00)
== END 2017-06-16 20:20 | disposition short-term general hospital (02) | DRG 871 ==
LOC: MED 16:19 → MIC 19:31 → MMU 19:31 → UNDOADMIN 19:31
PROVIDERS: ADMIT Internal Medicine Pulmonary Disease; ATTEND Internal Medicine Pulmonary Disease
DX: A41.89 Other specified sepsis (principal); G93.41 Metabolic encephalopathy; L89.159 Pressure ulcer of sacral region, unspecified stage; L89.614 Pressure ulcer of right heel, stage 4; E11.22 Type 2 diabetes mellitus with diabetic chronic kidney disease; E11.52 Type 2 diabetes mellitus with diabetic peripheral angiopathy with gangrene; E11.621 Type 2 diabetes mellitus with foot ulcer; I13.0 Hypertensive heart and chronic kidney disease with heart failure and stage 1 through stage 4 chronic kidney disease, or unspecified chronic kidney disease; M86.9 Osteomyelitis, unspecified; L97.409 Non-pressure chronic ulcer of unspecified heel and midfoot with unspecified severity; M86.8X7 Other osteomyelitis, ankle and foot; E11.69 Type 2 diabetes mellitus with other specified complication; F03.90 Unspecified dementia, unspecified severity, without behavioral disturbance, psychotic disturbance, mood disturbance, and anxiety; S81.802A Unspecified open wound, left lower leg, initial encounter; S81.801A Unspecified open wound, right lower leg, initial encounter; M19.90 Unspecified osteoarthritis, unspecified site; D64.9 Anemia, unspecified; N18.9 Chronic kidney disease, unspecified; R19.7 Diarrhea, unspecified; I50.9 Heart failure, unspecified; E66.9 Obesity, unspecified; Z74.01 Bed confinement status; Z88.0 Allergy status to penicillin; Z68.35 Body mass index [BMI] 35.0-35.9, adult; Y93.89 Activity, other specified; Y92.89 Other specified places as the place of occurrence of the external cause; Y99.8 Other external cause status; Z87.81 Personal history of (healed) traumatic fracture
CPT/HCPCS: 36415; 36556; 70450; 71045; 73090; 73130; 73610; 80048; 80053; 80202; 81001; 82550; 82553; 82803; 82948; 83605; 83735; 83874; 83880; 84100; 84484; 85025; 85610; 85730; 87040; 87070; 87081; 87086; 87186; 93925; 93970; 96361; 96365; 96367; 96375; 99291; A4649; A6248; J0692; J1650; J1815; J1940; J1956; J2405; J3370; J3490; J7030; J7060; Q0092